=== PATIENT | male | born 1940 | race Hispanic/Latino ===

== ENCOUNTER → 2017-04-20 | Outpatient (CLI) | payer OTHER | END | disposition home or self-care (01) | LOC: SHCH 09:21 | PROVIDERS: ATTEND Internal Medicine Cardiovascular Disease | DX: I35.0 Nonrheumatic aortic (valve) stenosis (principal) | CPT/HCPCS: 93306 ==

== ENCOUNTER → 2018-11-20 | Outpatient (CLI) | payer OTHER | END | disposition home or self-care (01) | LOC: SHCH 11:18 | PROVIDERS: ATTEND Internal Medicine Cardiovascular Disease | DX: I08.0 Rheumatic disorders of both mitral and aortic valves (principal) | CPT/HCPCS: 93306 ==

== ENCOUNTER → 2021-05-13 | Outpatient (CLI) | payer OTHER | END | disposition home or self-care (01) | LOC: SHCH 10:18 | PROVIDERS: ATTEND Internal Medicine Cardiovascular Disease | DX: I35.0 Nonrheumatic aortic (valve) stenosis (principal); E11.9 Type 2 diabetes mellitus without complications; E78.5 Hyperlipidemia, unspecified; I11.9 Hypertensive heart disease without heart failure | CPT/HCPCS: 93306; 93356 ==

== ENCOUNTER 2021-06-02 06:17 | Day surgery (SDC) | payer OTHER ==
[2021-05-29 09:56] LABS: BASOPHILS % (AUTO) 1.2 % (0.0-5.0); EOSINOPHILS % (AUTO) 4.7 % (0.0-8.0); HEMATOCRIT 44.5 % (42-54); LYMPHOCYTES % (AUTO) 25.4 % (21.0-51.0); MEAN CORPUSCULAR HEMOGLOBIN 29.5 pg (27.0-33.0); MEAN CORPUSCULAR HGB CONC 32.8 g/dL (32.0-36.0); MEAN CORPUSCULAR VOLUME 89.9 fL (79-99); MONOCYTES % (AUTO) 5.3 % (3.0-13.0); NEUTROPHILS % (AUTO) 63.1 % (40.0-77.0); PLATELET COUNT (AUTO) 297 K/uL (130-400); RED BLOOD CELL COUNT(AUTO) 4.95 MIL/uL (4.50-6.20); RED CELL DISTRIBUTION WIDTH 12.9 % (11.0-15.5); WHITE BLOOD COUNT (AUTO) 6.5 K/uL (4.8-10.8)
[2021-05-29 09:58] LABS: APPEARANCE,URINE Clear (CLEAR); BILIRUBIN,URINE Negative (NEGATIVE); COLOR,URINE Yellow (YELLOW); GLUCOSE, URINE (UA) Negative (NEGATIVE); KETONES,URINE Negative (NEGATIVE); LEUKOCYTE ESTERASE ,URINE Negative (NEGATIVE); NITRATE,URINE Negative (NEGATIVE); OCCULT BLOOD,URINE Negative (NEGATIVE); PROTEIN,URINE Negative (NEGATIVE); UROBILINOGEN,URINE 0.2 mg/dL (0.2-1.0)
[2021-05-29 10:17] LABS: INR 1.04 (0.85-1.15); PROTHROMBIN TIME 11.3 SEC (9.6-11.6)
[2021-05-29 10:19] LABS: CREATININE 1.2 mg/dL (0.5-1.5); PARTIAL THROMBOPLASTIN TIME 28.3 SEC (26.3-35.5); POTASSIUM 4.5 mmol/L (3.5-5.1)
[2021-05-29 13:41] VITALS: BP 138/72
[~2021-06-02] VITALS: Ht 175.3 cm; Wt 71.8 kg
[2021-06-02] VITALS (9 sets, daily range): BP systolic 100–131; BP diastolic 53–64
[~2021-06-02 06:17] MED LIST: AMLO-257 PO; ASPI-1197 PO; GLIP5TAB11 PO; LISI40TA9 PO; SIMV10TA97 PO
[2021-06-02] MEDS ORDERED: 0.9%NACL 1000ML 1,000 ML IV ONE (06:54)
[2021-06-02] MEDS ORDERED: HEPARIN 10,000 UNIT/10ML (1,000 UNIT/ML) VIAL ONE (07:19)
[2021-06-02] MEDS ORDERED: MIDAZOLAM HCL 1 MG/ML 2ML VIAL ONE (07:19)
[2021-06-02] MEDS ORDERED: NITROGLYCERIN 50MG VIAL ONE (07:19)
[2021-06-02] MEDS ORDERED: IOHEXOL 350 MG/ML 100ML INFUS..BTL IV ONE (07:19)
[2021-06-02] MEDS ORDERED: IOHEXOL-350 50ML VIAL IV ONE ×3 (07:19→09:03)
[2021-06-02] MEDS ORDERED: FENTANYL CITRATE PF 50 MCG/1 ML 2ML VIAL ONE (07:19)
[2021-06-02] MEDS ORDERED: LIDOCAINE HCL 400MG/20ML VIAL ONE ×2 (07:20→07:56)
[2021-06-02] MEDS ORDERED: BIVALIRUDIN 250 MG/VIAL IV ONE (07:36)
[2021-06-02] MEDS ORDERED: 0.9%NACL 1000ML 1,000 ML IV SCH (10:00)
[2021-06-02] MEDS ORDERED: DEXTROSE 50%-WATER 50 ML DISP.SYRIN IV PRN (10:00)
[2021-06-02] MEDS ORDERED: INSULIN HUMULIN R 100 UNIT/ML 3ML SQ SCH (11:30)
== END 2021-06-02 13:45 | disposition home or self-care (01) ==
LOC: DAH 06:17
PROVIDERS: ATTEND Internal Medicine Cardiovascular Disease
DX: I35.0 Nonrheumatic aortic (valve) stenosis (principal); I12.9 Hypertensive chronic kidney disease with stage 1 through stage 4 chronic kidney disease, or unspecified chronic kidney disease; N18.32 Chronic kidney disease, stage 3b; E11.22 Type 2 diabetes mellitus with diabetic chronic kidney disease; E78.5 Hyperlipidemia, unspecified; Z79.82 Long term (current) use of aspirin; Z79.899 Other long term (current) drug therapy
CPT/HCPCS: 36415; 71045; 80048; 81003; 82948; 85025; 85610; 85730; 93005; 93460; A4215; A4216; A4221; A4222; A4223 ×3; A4606; A4663; C1760; C1769 ×2; C1893; C1894 ×3; J1644 ×2; J2250; J3490 ×2; J7030; Q9965; Q9967 ×3; 99156; 99157; J0583; J3010

== ENCOUNTER → 2022-05-13 | Outpatient (CLI) | payer OTHER | END | disposition home or self-care (01) | LOC: SHCH 08:49 | PROVIDERS: ATTEND Internal Medicine Cardiovascular Disease | DX: I08.0 Rheumatic disorders of both mitral and aortic valves (principal); I11.9 Hypertensive heart disease without heart failure; E11.9 Type 2 diabetes mellitus without complications; E78.5 Hyperlipidemia, unspecified | CPT/HCPCS: 93306 ==

== ENCOUNTER → 2023-05-25 | Outpatient (CLI) | payer OTHER ==
[~2023-05-25] MED LIST changes: -GLIP5TAB11 PO; +GLIP5TAB15 PO
== END | disposition home or self-care (01) ==
LOC: SHCH 10:55
PROVIDERS: ATTEND Internal Medicine Cardiovascular Disease
DX: I08.0 Rheumatic disorders of both mitral and aortic valves (principal); I11.9 Hypertensive heart disease without heart failure; E78.5 Hyperlipidemia, unspecified; E11.9 Type 2 diabetes mellitus without complications
CPT/HCPCS: 93306

== ENCOUNTER → 2024-04-17 | Outpatient (CLI) | payer OTHER | END | disposition home or self-care (01) | LOC: RAH 12:22 | PROVIDERS: ATTEND Internal Medicine Cardiovascular Disease | DX: I35.0 Nonrheumatic aortic (valve) stenosis (principal) | CPT/HCPCS: 93306 ==

== ENCOUNTER 2024-11-08 07:43 | Day surgery (SDC) | payer OTHER ==
[2024-11-05 12:58] LABS: IMMATURE GRANULOCYTE ABSOLUTE 0.03 K/uL (0-1); NUCLEATED RED BLOOD CELLS 0.0 % (0.0-0.19); PLATELET COUNT (AUTO) 237 K/uL (130-400); RED BLOOD CELL COUNT(AUTO) 4.24 MIL/uL (4.50-6.20); RED CELL DISTRIBUTION WIDTH 13.4 % (11.0-15.5); WHITE BLOOD COUNT (AUTO) 6.9 K/uL (4.8-10.8)
[2024-11-05 13:02] LABS: APPEARANCE,URINE CLEAR (CLEAR); GLUCOSE, URINE (UA) 200 mg/dL (NEGATIVE); LEUKOCYTE ESTERASE ,URINE NEGATIVE Leu/uL (NEGATIVE); NITRATE,URINE NEGATIVE (NEGATIVE); OCCULT BLOOD,URINE NEGATIVE (NEGATIVE)
[2024-11-05 13:10] LABS: INR 0.98 (0.85-1.15)
--- NOTE | 2024-11-05 13:12 | EKG ---
[facility] Test Date: 2024-11-05 Test Time: 12:44:33 Pat Name: SALMA SNYDER Department: [facility] Room: Gender: M Hearing Therapist: [id number] : 1940 Requested By: JAEL AMANDA Order Number: [id number] Reading MD: Ac Ramirez Measurements Intervals [place] Rate: 58 P: 23 MA: 178 QRS: 35 QRSD: 91 T: 50 QT: 414 QTc: 408 Interpretive Statements Sinus rhythm Compared to ECG 05/29/2021 10:45:10 Sinus bradycardia no longer present Electronically Signed On 11-05-2024 21:44:40 CDT by Ac Ramirez Please click the below link to view image of tracing.
[2024-11-05 13:14] LABS: ADD UA MICROSCOPIC YES
[2024-11-05 13:17] VITALS: BP 131/56; PULSE 58; RESP 17; TEMP 97.3
[2024-11-05 13:17] LABS: CREATININE 1.3 mg/dL (0.5-1.3); GLOMERULAR FILTR. RATE CALC 55.0 mL/min (>90); GLUCOSE,RANDOM 162.0 mg/dL (70-105); SODIUM SERUM 140.0 mmol/L (136-145); UREA NITROGEN, BLOOD 28.0 mg/dL (7-18)
--- NOTE | 2024-11-06 05:09 | HMCIMG ---
EXAM: CR Chest, 1 view CLINICAL HISTORY: Preoperative evaluation. COMPARISON: None provided. FINDINGS: The lungs show no infiltrates or other acute findings. No pleural effusion or pneumothorax. The cardiomediastinal silhouette is within normal limits. No acute osseous abnormality. 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 IMPRESSION: No acute cardiopulmonary process is evident. 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 /[place]
--- NOTE | 2024-11-07 12:26 | NUR ---
REPORT MOSHE LEDEZMA INFORMED OF BMP AND CXR. OK TO PROCEED
[~2024-11-08] VITALS: Ht 175.3 cm; Wt 73.7 kg
[2024-11-08] VITALS (10 sets, daily range): BP systolic 111–132; BP diastolic 52–63; PULSE 59–73; RESP 14–16; TEMP 97.3–97.6
[~2024-11-08 07:43] MED LIST changes: -AMLO-257 PO; +AMLO2.5T4 PO; -ASPI-1197 PO; +DONE5TAB33 PO; +LISI40TA15 PO; -LISI40TA9 PO; +SIMV-43 PO; -SIMV10TA97 PO; +TRAM-543 PO; +TYLENOL ARTHRITIS PO
[2024-11-08] MEDS: 0.9%NACL 1000ML 1,000 ML IV SCH (07:54)
[2024-11-08] MEDS ORDERED: HEParin-NS 1,000 UNIT/500 ML 1,000 ML IV ONE (11:00)
[2024-11-08] MEDS ORDERED: LIDOCAINE HCL 400MG/20ML VIAL ONE (11:00)
[2024-11-08] MEDS ORDERED: IOHEXOL 350 MG/ML 100ML INFUS..BTL IV ONE ×2 (11:00→11:37)
[2024-11-08] MEDS ORDERED: MIDAZOLAM HCL 1 MG/ML 2ML VIAL ONE ×2 (11:02→11:36)
[2024-11-08] MEDS ORDERED: NITROGLYCERIN 50MG VIAL ONE (11:09)
--- NOTE | 2024-11-08 13:19 | PRN ---
DATE OF PROCEDURE: 11/08/2024 PROCEDURE PERFORMED: RIGHT AND LEFT HEART CATHETERIZATION, LEFT VENTRICULOGRAM, LEFT AND RIGHT SELECTIVE CORONARY ANGIOGRAM, RIGHT COMMON FEMORAL ANGIOGRAM, PERCLOSE SUTURE CLOSURE OF THE RIGHT COMMON FEMORAL ARTERY, AND CONSCIOUS SEDATION SOFTWARE ENGINEER ADVISOR: JAEL AMANDA MD, [facility] INDICATION: SEVERE ASYMPTOMATIC AORTIC STENOSIS BY 2D ECHOCARDIOGRAM PROCEDURE NOTE: After informed consent was obtained the patient was prepped and draped in the usual sterile fashion. A 6 Ecu[place] 45 cm arterial sheath was inserted in the right femoral artery using a micropuncture technique with ultrasound guidance with a front wall 1st pass puncture. A seven [place] venous sheath with hemostatic valve was inserted into the right common femoral vein again with ultrasound guidance and micropuncture technique with the 1st pass puncture. This was performed after fluoroscopic identification of bony landmarks to facilitate a more accurate puncture of the right common femoral artery. A seven [place] S tip [place] catheter was advanced using balloon floatation to the right atrium, RV, PA, and wedge position with pressure measurements. A five [place] pigtail catheter was advanced to the ascending aorta and using a straight wire was used to traverse the aortic valve with modest difficulty. The valve was inferiorly located in the right coronary cusp area. Simultaneous pressure measurements of LVEDP and wedge pressure were obtained followed by simultaneous pressure measurements of LV and descending thoracic aorta, cardiac output determinations with thermo and Kristopher methods, and valve area calculations. A left ventriculogram was then performed in a 30 OLIVA projection. A pullback procedure was then performed, and this catheter was removed. A 6F JL-4 was then advanced to the ascending aorta over a J-tipped guidewire, was aspirated and flushed, and was used for selective left coronary angiograms in multiple obliquities. A JR-4 was advanced in a similar fashion to the ascending aorta over a J-tipped guidewire and was used for selective right coronary angiograms in multiple obliquities with findings as outlined below. A right common femoral angiogram was performed to assess suitability for Perclose suture closure and the Perclose device was deployed in standard fashion. Perclose suture closure was successful without bleeding or hematoma. Manual hemostasis was used for the right common femoral vein puncture site. The patient tolerated the procedure well and was returned to the holding area in stable condition. FINDINGS: RIGHT HEART CATHETERIZATION: RA: 9 mm of mercury on the A-wave and 6 mm of mercury on the V-wave with mean RA pressure of 6 mm of mercury RV: RV pressure was 40/10 mm of mercury. PA pressure 38/12 mm of mercury with mean PA pressure of 20 mm of mercury. Pulmonary capillary wedge pressure: 16 mm of mercury on the A-wave and 18 mm of mercury on the V-wave with a mean pulmonary capillary wedge pressure of 12 mm of mercury. Cardiac output 6.1 L/min with cardiac index of 3.2 L/min per meter squared using thermodilution Cardiac output 6.0 L/min with cardiac index of 3.2 L/min per meter squared using Kristopher method LEFT HEART HEMODYNAMICS: Using simultaneous pressure measurements: Peak to peak aortic valve gradient 60 mm of mercury Mean aortic valve gradient 56 mm of mercury Thermo aortic valve area 0.9 cm2 Kristopher aortic valve area 0.9 cm2 LEFT VENTRICULOGRAM: A left ventriculogram in a 30 degree OLIVA projection demonstrated normal LV systolic function and wall motion with an LVEF estimate of 65%. No mitral regurgitation. CORONARY ANGIOGRAMS: LEFT MAIN: Normal left main without dampening or ventricularization of the pressure waveform. LEFT ANTERIOR DESCENDING: There is a 40% proximal LAD stenosis prior to the diagonal one and a 50% followed by 50% tandem mid LAD stenoses. The distal LAD had a 40% stenosis. There was a 50% ostial stenosis and a small diagonal one vessel. LEFT CIRCUMFLEX: The left circumflex was normal and nondominant. The OM1 was small and normal and a large bifurcating OM2 was also normal. RAMUS INTERMEDIATE BRANCH: There was no ramus intermediate branch. 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 Otherwise the RCA, acute marginal branch, PDA, and posterolateral ventricular branches were normal. IMPRESSION: Severe asymptomatic aortic valve stenosis: Peak to peak aortic valve gradient 60 mm of mercury Mean aortic valve gradient 56 mm of mercury Aortic valve area 0.9 cm2 using both thermodilution and Kristopher methods No mitral regurgitation Normal LV filling pressures with mean pulmonary capillary wedge pressure of 12 mm of mercury Normal cardiac output and cardiac index. Nonobstructive coronary artery disease with 40% proximal LAD stenosis, 50 followed by 50% tandem mid LAD stenosis, 40% distal LAD stenosis, and 50% proximal RCA stenosis. RECOMMENDATION: Proceed with TAVR versus SAVR evaluation with consultation with Cardiothoracic surgeon. CT angiogram with TAVR protocol to assess suitability of femoral arteries for access. COMPLICATIONS OF PROCEDURE: None, the patient tolerated the procedure well and was returned to his room in stable condition. HEMOSTASIS: Perclose suture closure successful without bleeding or hematoma. ESTIMATED BLOOD LOSS: Less than 10 mL. CONTRAST TOTAL: 110 mL. JAEL AMANDA MD Nov 08, 2024 13:18
[2024-11-08] MEDS ORDERED: 0.9%NACL 1000ML 1,000 ML IV SCH (13:30)
[2024-11-08] MEDS ORDERED: DEXTROSE 50%-WATER 50 ML DISP.SYRIN IV PRN (13:30)
--- NOTE | 2024-11-08 15:02 | NUR ---
Patient remains stable. SR with bingo clerk intact. Denies c/o pain or issue. Right femoral site soft without evident of bleeding, bruising or hematoma. drsg clean and dry. Pedal pulses intact to ble's. Tolerated Lunch and fluids without problem. NS at 100 mls/hr to patent piv. Reported off to Nita AYALA. Appointments made by Miguel AYALA as per Dr. Toth.
--- NOTE | 2024-11-08 15:09 | NUR ---
Patient has remains stable with SR evident and cardiac alarms intact. R Femoral site clean and dry with no evidence of bleeding, bruising or hematoma. Pedal pulses intact to ble's. NS at 100 mls/hr to patent piv. Patient ate 75% of Lunch. Patient voided per urinal. Daughters at bedside appearing supportive. Reported off in full to Nita AYALA and Areli AYALA.
== END 2024-11-08 18:00 | disposition home or self-care (01) ==
LOC: DAH 07:43 → EDSTATUS 13:00 → DAH 18:00
PROVIDERS: ATTEND Internal Medicine Cardiovascular Disease
DX: I35.0 Nonrheumatic aortic (valve) stenosis (principal); I25.10 Atherosclerotic heart disease of native coronary artery without angina pectoris; I12.9 Hypertensive chronic kidney disease with stage 1 through stage 4 chronic kidney disease, or unspecified chronic kidney disease; E11.22 Type 2 diabetes mellitus with diabetic chronic kidney disease; N18.30 Chronic kidney disease, stage 3 unspecified; E78.5 Hyperlipidemia, unspecified; Z79.82 Long term (current) use of aspirin; Z79.899 Other long term (current) drug therapy
CPT/HCPCS: 80048; 83880; 85025; 85610; 85730; 81001; 36415; 71045; 93005; 93460; 99157 ×4; 99156; 82948; C1769; C1894 ×2; C1760; C1893; Q9965; J3010; J3490 ×2; J1644 ×2; J2250; Q9967; A4215; A4222; A4221; A4663; A4216; A4606; A4223 ×3; 96360; 96361

== ENCOUNTER → 2024-11-20 | Outpatient (CLI) | payer OTHER ==
[~2024-11-20] MED LIST changes: +IOHEXOL 350 MG/ML 100ML INFUS..BTL IV ONE
--- NOTE | 2024-11-21 07:36 | HMCIMG ---
EXAM: CTA Chest, abdomen, and pelvis for TAVR evaluation. CLINICAL HISTORY: Severe aortic stenosis. TECHNIQUE: EKG cardiac-gated thin collimated axial CT images of the chest, abdomen, and pelvis were obtained, and sagittal and coronal reformatted images were also submitted. A CT scan is done according to ALARA (As Low as Reasonably Achievable). COMPARISON: None provided. FINDINGS: There are small segmental and subsegmental pulmonary emboli in the left lower lobe. Evaluation of the aortic root and aortic valve shows calcification. The AVCS (Aortic valve calcium score) is not provided. 3 aortic sinuses are present. The annulus area was calcified. The aortic annulus measures 2.6 cm in transverse diameter. The aortic root at the widest point measures 3.3 cm. The aortic root at the sinotubular junction measures 2.8 cm. The vertical distance from the aortic annulus to the sinotubular junction at the left coronary sinus measures 1.7 cm. No pericardial effusion. The heart size is within normal limits. The ascending aorta measures 3.1 cm. The descending thoracic aorta measures 2.4 cm. Coronary artery calcification was identified in all 3 coronary arteries. The abdominal aorta measures 1.9 cm in anteroposterior dimensions and 1.9 cm in transverse dimensions at the level of renal arteries. Abdominal aorta at the level of bifurcation measures 1.7 cm. The right common iliac artery measures 1.2 cm, and the left common iliac artery measures 1.2 cm. The right and left common femoral arteries measure 0.9 cm. The lungs are clear. No pleural effusions. No axillary, supraclavicular, or mediastinal lymphadenopathy. There is no focal abnormality appreciated within the liver, gallbladder, pancreas, or spleen. 10 mm cortical exophytic cyst in the lower pole of the left kidney. There is a 2.0 cm nodule in the left adrenal gland. There is no obvious bowel wall thickening. Bowel loops are normal in caliber without evidence of obstruction or ileus. Mild constipation. The appendix is normal. The urinary bladder is thick-walled and there is adjacent stranding noted. Unremarkable reproductive organs. No lymphadenopathy. No free fluid. There is no acute osseous abnormality. 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 IMPRESSIONS: 1. Small segmental and subsegmental pulmonary emboli in the left lower lobe. 2. Aortic root measurements as described. The AVCS (Aortic valve calcium score) is not provided. 3. Thick-walled urinary bladder with adjacent stranding, consistent with cystitis. 4. 1ndeterminate left adrenal nodule. 5. Small Bosniak classification 1 left renal cyst. 6. 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 /[place]
== END | disposition home or self-care (01) ==
LOC: RAH 07:59
PROVIDERS: ATTEND Internal Medicine Cardiovascular Disease
DX: N28.1 Cyst of kidney, acquired (principal); I35.0 Nonrheumatic aortic (valve) stenosis; I26.93 Single subsegmental thrombotic pulmonary embolism without acute cor pulmonale; I26.99 Other pulmonary embolism without acute cor pulmonale; I25.10 Atherosclerotic heart disease of native coronary artery without angina pectoris; K59.00 Constipation, unspecified; M43.17 Spondylolisthesis, lumbosacral region
CPT/HCPCS: 74174; 75574; Q9967